=== PATIENT | male | born 1985 | race Two or more races ===

== ENCOUNTER 2024-04-01 04:28 | Inpatient (IN) | payer OTHER ==
[~2024-04-01] VITALS: Ht 172.7 cm; Wt 93.0 kg
[2024-04-01] MEDS ORDERED: ADDERALL XR 2020 MG PO (04:39)
[2024-04-01] MEDS ORDERED: RINGERS SOLUTION,LACTATED 1,000 ML IV STA (05:06)
[2024-04-01] MEDS ORDERED: MORPHINE SULFATE 4 MG/ML VIAL IV STA ×2 (05:06→09:03)
[2024-04-01] MEDS ORDERED: PIPERACILLIN/TAZOBACTAM SODIUM 3.375 GM VIAL IV STA (05:07)
[2024-04-01] MEDS ORDERED: GENTAMICIN SULFATE 40 MG/ML VIAL IV STA (05:07)
[2024-04-01 06:03] LABS: HEMATOCRIT 37.8 % (39.0-48.0); HEMOGLOBIN 13.3 g/dL (13-16.00); MEAN CORPUSCULAR HEMOGLOBIN 31.4 pg (27.00-32.0); MEAN CORPUSCULAR HGB CONC 35.2 g/dl (32.0-36.0); PLATELET COUNT 203 K/uL (150-450); RED BLOOD COUNT 4.24 M/uL (4.00-6.00); RED CELL DISTRIBUTION WIDTH 12.5 % (11.5-14.5)
[2024-04-01 06:21] LABS: INR 0.95; PARTIAL THROMBOPLASTIN TIME 30.9 SECONDS (22.0-34.0); PROTHROMBIN TIME 10.4 SECONDS (9.0-11.5)
[2024-04-01 06:26] LABS: ERYTHROCYTE SEDIMENTATION RATE 25 mm/hr
[2024-04-01 06:35] LABS: ALBUMIN 3.6 gm/dL (3.4-5.0); BILIRUBIN TOTAL 0.32 mg/dL (0.3-1.2); CALCIUM 8.6 mg/dL (8.5-10.1); CREATININE SERUM 1.08 mg/dL (0.70-1.30); GFR 75.73; GLOBULINA 3.4 G/DL (2.4-3.5); POTASSIUM 3.82 mEq/L (3.5-5.1)
[2024-04-01 06:40] LABS: C-REACTIVE PROTEIN 2.71 MG/DL (0.00-0.29)
[2024-04-01 07:43] LABS: PH,URINE 6.5 (5.0-8.0); URINE APPEARANCE Clear; URINE BILIRRUBIN Negative (NEGATIVE); URINE BLOOD Negative; URINE COLOR Yellow; URINE GLUCOSE Negative (NEGATIVE); URINE KETONE Negative (NEGATIVE); URINE LEUKOCYTE Negative; URINE NITRATE Negative; URINE PROTEIN Negative (NEGATIVE); URINE UROBILINOGEN 0.2 E.U./dl
[2024-04-01 07:47] LABS: URINE BACTERIA 15.1 uL (0.0-1933); URINE EPITHELIAL CELLS 1.9 uL (0.0-38.8); URINE RBC 11.1 uL (0.0-20.8); URINE WBC 2.4 uL (0.0-23.2)
[2024-04-01] MEDS ORDERED: ORPHENADRINE CITRATE 100 MG TABLET PO ONE (09:30)
[2024-04-01] MEDS ORDERED: MORPHINE SULFATE 4 MG/ML VIAL IV PRN (11:45)
[2024-04-01] MEDS ORDERED: ONDANSETRON HCL 2 MG/ML VIAL IV PRN (11:45)
[2024-04-01] MEDS ORDERED: FAMOTIDINE/PF 20 MG/2 ML VIAL IV SCH (11:46)
[2024-04-01] MEDS ORDERED: CIPROFLOXACIN IN 5 % DEXTROSE 200 ML IV SCH (11:50)
[2024-04-01] MEDS ORDERED: METRONIDAZOLE/SODIUM CHLORIDE 100 ML IV SCH (11:50)
[2024-04-01] MEDS ORDERED: ACETAMINOPHEN 500 MG GEL..CAP PO PRN (12:00)
[2024-04-01] MEDS ORDERED: 0.9 % SODIUM CHLORIDE 1,000 ML IV SCH (12:00)
[2024-04-01 12:41] VITALS: BP 130/80
[2024-04-01 17:16] VITALS: BP 143/83
[2024-04-01] MEDS ORDERED: PIPERACILLIN/TAZOBACTAM SODIUM 3.375 GM in 0.9 % SODIUM CHLORIDE 100 ML IV SCH (18:00)
[2024-04-01] MEDS ORDERED: MORPHINE SULFATE 4 MG/ML CARTRIDGE IV PRN (19:15)
[2024-04-01 21:23] VITALS: BP 125/54
[2024-04-02] VITALS: BP 125/71; O2SAT 98
[2024-04-02 09:37] VITALS: BP 147/83; O2SAT 97
[2024-04-02 16:16] VITALS: BP 137/66
[2024-04-03 01:11] VITALS: BP 116/66; O2SAT 98
[2024-04-03 08:19] VITALS: BP 109/68; O2SAT 97
[2024-04-03] MEDS ORDERED: MORPHINE SULFATE 4 MG,MORPHINE SULFATE 2 MG IV PRN (10:03)
[2024-04-03 16:29] VITALS: BP 140/75
[2024-04-04 01:36] VITALS: BP 109/63; O2SAT 97
[2024-04-04 10:34] VITALS: BP 128/83; O2SAT 97
[2024-04-04 12:29] LABS: HEMATOCRIT 37.2 % (39.0-48.0); MEAN CELL VOLUME 89.1 fL (80.0-100.00); MEAN CORPUSCULAR HEMOGLOBIN 31.2 pg (27.00-32.0); PLATELET COUNT 235 K/uL (150-450); RED BLOOD COUNT 4.18 M/uL (4.00-6.00); RED CELL DISTRIBUTION WIDTH 12.4 % (11.5-14.5)
[2024-04-04 14:00] LABS: ALBUMIN 3.1 gm/dL (3.4-5.0); BILIRUBIN TOTAL 0.23 mg/dL (0.3-1.2); CALCIUM 9.1 mg/dL (8.5-10.1); CREATININE SERUM 0.82 mg/dL (0.70-1.30); GFR 104.06; GLOBULINA 3.2 G/DL (2.4-3.5); POTASSIUM 4.04 mEq/L (3.5-5.1); TOTAL PROTEIN 6.3 gm/dL (6.4-8.2)
[2024-04-04 16:46] VITALS: BP 156/75
[2024-04-05] VITALS: BP 113/58
[2024-04-05 08:32] VITALS: BP 122/71; O2SAT 97
[2024-04-05] MEDS ORDERED: MORPHINE SULFATE 4 MG,MORPHINE SULFATE 2 MG IV PRN (13:30)
[2024-04-05 17:14] VITALS: BP 125/66; O2SAT 98
[2024-04-06 00:25] VITALS: BP 135/60; O2SAT 98
[2024-04-06 09:03] VITALS: BP 120/72; O2SAT 96
== END 2024-04-06 12:03 | disposition home or self-care (01) | DRG 603 ==
LOC: ER 04:30 → SEC-K 12:22 → MEDI 12:22 → MEDJ 13:30 → MEDI 14:09
PROVIDERS: Internal Medicine Infectious Disease; ADMIT Internal Medicine; ATTEND Internal Medicine
PROC: BW3GYZZ Magnetic Resonance Imaging (MRI) of Pelvic Region using Other Contrast (ICD-10-PCS; principal; 2024-04-01)
PROC: BW21YZZ Computerized Tomography (CT Scan) of Abdomen and Pelvis using Other Contrast (ICD-10-PCS; 2024-04-01)
DX: L02.31 Cutaneous abscess of buttock (principal); K61.0 Anal abscess
CPT/HCPCS: 72196